=== PATIENT | male | born 1935 | race Caucasian/White ===

== ENCOUNTER 2017-02-14 11:15 | Observation (INO) | payer MEDICARE ==
[~2017-02-14] VITALS: Ht 176.5 cm; Wt 82.0 kg
--- NOTE | 2017-02-14 11:24 | ED.REPORT ---
HPI-Syncope Date of Service Feb 14, 2017 ED Provider: Dr. Aquino Pt is an 82 y/o male w/ a hx of NIDDM, HTN, presenting to the ED due to syncopal episode which occurred about 1 hr prior to arrival. He was sitting at a pew in worship and began to experience bilateral blurred vision which he describes as "cloudy sensation all over" and then lost consciousness. EMS was called and he opted to come to the ED via personal vehicle. He was able to walk into the ED independently and is feeling completely normal at time of interview. He had been sitting for a while but notes that he does experience intermittent orthostatic lightheadedness which he states is normal for him. He does report cold-like symptoms recently which include mild dry cough and nasal congestion. He denies any CP, palpitations, SOB, change in balance, focal numbness/weakness, speech change. Nursing Notes Stated Complaint: FAINTED,POSS LOW BLOOD SUGAR,BLURRY VISION Chief Complaint: Chest Pain Nursing Notes Reviewed: Yes Allergies: Coded Allergies: No Known Allergies (Unverified , 02/14/17) Scheduled Amlodipine (Amlodipine) 10 Mg Tablet 10 MG PO DAILY Aspirin (Aspirin) 81 Mg Tablet 81 MG PO DAILY Atorvastatin Calcium (Atorvastatin Calcium) 10 Mg Tablet 10 MG PO DAILY Carvedilol (Carvedilol) 12.5 Mg Tablet 12.5 MG PO DAILY Carvedilol (Carvedilol) 12.5 Mg Tablet 25 MG PO DAILYWD Chlorthalidone (Chlorthalidone) 25 Mg Tablet 25 MG PO DAILY Glipizide ER (Glipizide ER) 5 Mg Tab.er.24 0.25 MG PO DAILY Isosorbide MN ER (Isosorbide MN ER) 30 Mg Tab.er.24h 30 MG PO DAILY Losartan Potassium (Losartan Potassium) 100 Mg Tablet 100 MG PO DAILY Metformin HCl (Metformin HCl ER) 1,000 Mg [id number] 1,000 MG PO BIDWM General Time Seen by Provider: 11:25 Chief Complaint Other (syncopal episode) Syncope Description: Single episode Hx Obtained From: Patient Arrived By: Walk-in Onset Occurred: 1 - 4 hours ago Symptom Duration: 1 - 15 minutes Progression Since Onset: Resolved Severity: Current: No pain currently Severity: Maximum: No pain Similar Sx Previous: No Past Medical History Past Medical History NIDDM HTN Past Surgical History Achilles tendon repair Smoking History Never Smoker Social History Alcohol Use: "Social" Ambulatory Status Independent Review of Systems Constitutional: Denies: Chills, Fever Eyes: Reports: Blurred bilateral, Denies: Photophobia Ears / Nose / Throat: Reports: Nasal congestion, Denies: Throat swelling Respiratory: Reports: Non-productive cough, Denies: Shortness of breath Cardiovascular: Denies: Chest pain, Dyspnea on exertion, Palpitations GI: Denies: Abdominal pain, Nausea, Vomiting Neurologic: Reports: Change LOC, Syncope, Vision change, Denies: Confusion, Dizziness, Focal weakness, Headache, Numbness, Problem walking, Shaking, Slurred speech, Unable to speak Complete sys rev & neg: except as marked. Physical Exam Initial Vital Signs Vital Signs (First) Date Time Temp Pulse Resp B/P Pulse Ox O2 Delivery O2 Flow Rate FiO2 02/14/17 11:25 36.9 67 15 149/73 99 Room Air Initial VS: Reviewed, Vital signs normal Head / Eyes: Atraumatic, Normocephalic, PERRL ENT: Mucous membranes moist, Conjunctiva normal, No scleral icterus Neck: Supple, Full range of motion Abdomen / GI: Soft, Non-tender, No guarding, No rebound, No distention Upper Extremities: Vascular intact, Neuro intact, No swelling, No tenderness Skin: Warm, Dry, No cyanosis Psychiatric: Mood/affect normal, Behavior normal, Normal thought content General/Constitutional: Awake, Alert, No acute distress, Well appearing, Cooperative, Not toxic appearing Respiratory / Chest: Atraumatic, Breath sounds NL, Breath sounds = bilat, No respiratory distress, No rales, No rhonchi, No wheezing, No retractions, No stridor, No chest tenderness, No chest wall deformity, No crepitus Cardiovascular: Heart rate NL, Regular rhythm, Heart sounds NL, No gallop, No murmurs, No rubs, Cap refill not delayed, Peripheral circulation NL Lower Extremity / Pelvis / MS: Atraumatic, Full range of motion, No deformity, Neurologic intact, Vascular intact, No ligamentous injury Neurologic: Oriented X3, Speech NL, No motor deficits, No sensory deficits, CN II - XII intact, Cerebellar NL, Memory NL Interpretation & Diagnostics Lab Results Interpretation Result Diagram: 02/14/17 1145 02/14/17 1145 Test 02/14/17 11:45 White Blood Count 3.8th/mm3 (3.8-10.1) Red Blood Count 3.56mil/mm3 (4.40-5.80) Hemoglobin 11.7g/dL (13.8-17.2) Hematocrit 34.3% (41.0-50.0) Mean Corpuscular Volume 96.3fL (81-100) Mean Corpuscular Hemoglobin 32.9pg (27.0-35.0) Mean Corpuscular Hemoglobin Concent 34.1% (32.0-37.0) Red Cell Distribution Width 13.0% (12.3-15.4) Platelet Count 217bil/L (150-400) Neutrophils (%) (Auto) 30.1% (40-74) Lymphocytes (%) (Auto) 30.0% (14-46) Monocytes (%) (Auto) 30.8% (4-12) Eosinophils (%) (Auto) 8.5% (0-5) Basophils (%) (Auto) 0.3% (0-3) Sodium Level 132mEq/L (134-144) Potassium Level 4.0mEq/L (3.5-5.2) Chloride Level 93mEq/L (97-108) Carbon Dioxide Level 21mmol/L (18-29) Blood Urea Nitrogen 22mg/dL (8-27) Creatinine 1.41mg/dL (0.76-1.27) Estimat Glomerular Filtration Rate 51mL/min (>59) Glucose Level 141mg/dL (60-99) Calcium Level 9.0mg/dL (8.5-10.1) Magnesium Level 1.9mg/dL (1.6-2.6) Total Bilirubin 0.3mg/dL (0.0-1.2) Aspartate Amino Transf (AST/SGOT) 15U/L (0-50) Alanine Aminotransferase (ALT/SGPT) 14U/L (0-44) Alkaline Phosphatase 52U/L (25-160) Pro-B-Type Natriuretic Peptide 151.2pg/mL (0-486) Total Protein 7.3g/dL (6.4-8.4) Albumin 4.6g/dL (3.4-5.0) Procalcitonin 0.07ng/mL (0.00-0.08) Hold Negrete Top Tube Received (Received) ECG Interpretation Time: 11:34 Interpreted by: ED physician Normal ECG Interpretation: Normal ECG w/ rate of... (64), Normal rate, Normal sinus rhythm, No acute ischemic changes, Normal QRS, Normal axis, Normal intervals, Adequate tracing X-Ray Chest Interpretation Chest Xray Interpretation: IMPRESSION: No acute cardiopulmonary disease. Dictated by: Dario Dumont M.D. on 02/14/2017 at 12:42 Approved by: Dario Dumont M.D. on 02/14/2017 at 12:42 View: Portable, AP & lat Interpretation / Wet Read by: Interpret - Radiologist Re-Eval/Medical Decision Med Decision/Clinical Course Unprovoked syncope pain an 82-year-old diabetic, lab evaluation reveals an indeterminate troponin of unclear etiology however, the overall history of present illness is concerning for cardiogenic cause. We will plan to admit for observation and further workup. Re-Evaluation/Progress : Time of Eval: 13:36 Re-Evaluation/Progress Note: Pt rechecked. Remains asymptomatic. Informed pt of need for admission for further evaluation of unprovoked syncopal episode and elevated troponin. Pt understands and agrees with plan for admission. All questions addressed. Consultation : Referral / Consult Name: Emory Dominguez MD Consulted With: Hospitalist Call Returned at: 14:09 Basketball Coach: Will see patient, Agrees with eval, Agrees with plan, Accepts admit Counseled Regarding: Diagnosis, Lab results, Need for admission Discharge & Departure Impression: Primary Impression: Syncope Syncope type: unspecified Qualified Code: R55 - Syncope and collapse Additional Impression: Elevated troponin Disposition: ADMITTED TO HOSPITAL Discharge Condition All VS Reviewed: Yes Condition: Stable Scribe Attestation Portions of this note were transcribed by Corbin Horner. I, Dr. Aquino personally performed the history, physical exam and medical decision-making; I reviewed and confirmed the accuracy of the information in the transcribed note. Signed by Kevin Cruz, 02/14/17 - 1145 Hernandez Aquino DO Feb 14, 2017 11:24 CORBIN HORNER Feb 14, 2017 11:25
[2017-02-14 11:25] VITALS: BP 149/73; PULSE 67; RESP 15; O2SAT 99
[2017-02-14 11:59] LABS: BASOPHILS % (AUTO) 0.3 % (0-3); EOSINOPHILS % (AUTO) 8.5 % (0-5); MONOCYTES % (AUTO) 30.8 % (4-12); Mean Corpuscular Hemoglobin 32.9 pg (27.0-35.0); Mean Corpuscular Volume 96.3 fL (81-100); NEUTROPHILS % (AUTO) 30.1 % (40-74); Platelet Count 217 bil/L (150-400)
[2017-02-14 12:11] LABS: TROPONIN T 0.026 ug/L (0.0-0.011)
[2017-02-14 12:22] LABS: Magnesium 1.9 mg/dL (1.6-2.6)
--- NOTE | 2017-02-14 12:44 | DRSVH ---
PROCEDURE: X-RAY CHEST, TWO VIEWS ([id number]) INDICATIONS: syncope TECHNIQUE: 2 views of the chest were acquired. COMPARISON: [facility], , CHEST 2 VIEW, 02/11/2016, 10:57. FINDINGS: Surgical changes and devices: None. Lungs and pleura: No pleural effusions or pneumothorax. Mild left basilar atelectasis. Lungs are ot herwise clear. Mediastinum: Mediastinal contours are normal. Heart size is normal. Bones and chest wall: No suspicious bony abnormalities. Soft tissues appear unremarkable. IMPRESSION: No acute cardiopulmonary disease. Dictated by: Dario Dumont M.D. on 02/14/2017 at 12:42 Approved by: Dario Dumont M.D. on 02/14/2017 at 12:42
[2017-02-14] MEDS ORDERED: Ondansetron 2 mg/mL 2 mL Inj IVPUSH PRN ×2 (14:20→14:55)
[2017-02-14] MEDS ORDERED: Alum-Mag Hydrox-Simeth 30 mL Suspension PO PRN ×2 (14:20→14:55)
[2017-02-14 14:46] VITALS: BP 123/74; PULSE 66; RESP 20; O2SAT 96
[2017-02-14] MEDS ORDERED: Polyethylene Glycol (PEG) 17 Gm Powder PO PRN (14:55)
[2017-02-14 14:59] VITALS: PULSE 67
[2017-02-14] MEDS ORDERED: ISOS30TA4 PO (15:45)
[2017-02-14] MEDS ORDERED: AMLO10TA3 PO (15:45)
[2017-02-14] MEDS ORDERED: LOSA100T29 PO (15:45)
[2017-02-14] MEDS ORDERED: GLIP5TAB26 PO (15:45)
[2017-02-14] MEDS ORDERED: HYG25 PO (15:46)
[2017-02-14] MEDS ORDERED: ATOR10TA66 PO (15:46)
[2017-02-14] MEDS ORDERED: ASPI-973 PO (15:47)
[2017-02-14] MEDS ORDERED: CARV12.52 PO ×2 (15:48)
[2017-02-14] MEDS ORDERED: METF-778 PO (15:48)
--- NOTE | 2017-02-14 18:06 | NUR ---
Admit: Patient arrived to [facility] @ approx 1500. Alert & oriented. Bed rails up x 2, bed in low and locked position. VSS. Telemetry #43 SR 80 per telephone supervisor. Oriented to room and call light system. Denies pain, shortness of breath, dizziness, lightheadedness. Family at bedside. BG 215. notified, SS insulin coverage ordered.
--- NOTE | 2017-02-14 18:23 | NUR ---
RENE explained and signed. Copy provided to pt.
[2017-02-14] MEDS: 0.9% NaCl + KCl 20 mEq/L 1,000 ML IV SCH (18:40)
[2017-02-14 19:49] VITALS: BP 119/68; PULSE 80; RESP 20; O2SAT 98
[2017-02-14 20:00] VITALS: PULSE 80
--- NOTE | 2017-02-14 20:03 | PCM.HPMED ---
Subjective Date of Service Feb 14, 2017 Primary Provider: Admitting Physician: Emory Dominguez MD Primary Care Physician: Amelie Escobedo Attending Physician: Emory Dominguez MD Admit Status: From the Emergency Department, Admit to Kevin Team Chief Complaint: I past out in [facility] History of Present Illness: Patient is an 82-year-old white male who appears much younger than his stated age. He has a history of nei-nbawwsj-jrdpxrkth diabetes mellitus and hypertension and was attending [facility] this morning. The patient was sitting in the pew next to his daughter when he began to experience sensation and sensation that he describes as "everything went cloudy". The patient collapsed from the pew where he was sitting to the floor. Family estimates that he was out for only 10-15 seconds. There were a couple of nurses present at the mass and they began feeding him sugar. Paramedics were called and when they arrived they checked the patient's blood sugar and it was 143. EMS services offered to take the patient to [facility] emergency room however the patient opted to come to the [facility] emergency room via personal vehicle. He was able walk into the emergency room department independently and was feeling completely normal at the time of the interview by Dr. Piyush Fermin. He did state that he experienced some orthostatic lightheadedness which he stated was normal for him. He did report cold-like symptoms recently which included mild dry cough and nasal congestion. He denied any chest pain,", shortness of breath , change in balance, focal numbness or weakness or speech change. Patient due to the syncopal episode was brought in under observation to the hospital service. Review of Systems: General: The patient is in no apparent distress. He has not lost weight recently and he has no additional complaints. HEENT: Patient has no headache, patient has no diplopia, patient has no changes in vision. Patient does have some early cataracts but they are not to the point where they need to be operated on. Patient has no problems with his ears , nose or throat. Patient has no known dental problems. Patient has no pharyngitis or history of thrush. Neck: Patient has no stiffness in the neck. Patient has no lymphadenopathy. Patient has no other problems with his neck. Pulmonary: Patient has no shortness of breath, no cough, no expectoration of sputum. Patient has no pleurisy. Patient has no chest pain. Patient has no history of asthma or COPD. Cardiovascular: Patient has no chest pain. Patient has no history of heart murmur. Patient has no palpitations. Patient has no history of myocardial infarction. Patient has no history of coronary artery disease. Gastrointestinal: Patient has no history of hepatitis A, B or C. Patient has no history of peptic ulcer disease. Patient has no history of gastroesophageal reflux disease. Patient has no history of nausea, vomiting, or diarrhea. Patient has no history of hematemesis, hematochezia, or melena. Patient has no history of colitis. Renal: Patient has no history of kidney disease. No history of kidney stones. Genitourinary: Patient has no history of dysuria, frequency, or incontinence. Patient has no previous history of genitourinary problems. Musculoskeletal: Patient has no history of muscular skeletal problems. He does complain of some achiness which he associates with arthritis. However, this is very minimal. Patient does get edema both lower extremities which is symmetrical. Neurologic: Patient has no history of stroke, no history of seizure, no history of TIA. Psychiatric: Patient has no history of psychiatric problems. The remainder of the entire review of systems was reviewed with patient and is as mentioned above otherwise negative. Allergies Coded Allergies: No Known Allergies (Unverified , 02/14/17) Home Medications Amlodipine (Amlodipine) 10 Mg Tablet 10 MG PO DAILY Aspirin (Aspirin) 81 Mg Tablet 81 MG PO DAILY Atorvastatin Calcium (Atorvastatin Calcium) 10 Mg Tablet 10 MG PO DAILY Carvedilol (Carvedilol) 12.5 Mg Tablet 12.5 MG PO DAILY Carvedilol (Carvedilol) 12.5 Mg Tablet 25 MG PO DAILYWD Chlorthalidone (Chlorthalidone) 25 Mg Tablet 25 MG PO DAILY Glipizide ER (Glipizide ER) 5 Mg Tab.er.24 0.25 MG PO DAILY Isosorbide MN ER (Isosorbide MN ER) 30 Mg Tab.er.24h 30 MG PO DAILY Losartan Potassium (Losartan Potassium) 100 Mg Tablet 100 MG PO DAILY Metformin HCl (Metformin HCl ER) 1,000 Mg [id number] 1,000 MG PO BIDWM PMH Mew-ggwitms-gbxyrabgz diabetes mellitus for approximately 20 years. Hypertension for possibly 20 years. Surgical History Tonsillectomy at a very young age Achilles tendon repair after he snapped his right Achilles tendon during a family volleyball game. He denies any other surgeries. Social History Hx Alcohol Use: Yes Alcoholic Drinks Per Day: 1 Wine/Day Hx Substance Use: No Smoking Status: Former Smoker (patient smoked for 3 or 4 years during the service and possibly a year or so after getting out. Patient then quit.) Living Arrangement: with Family Additional Information Patient was born in [place] and then was raised [place] ended up going to high school in [employer]. Patient then went to one year at [employer]. Patient ended up marrying a girl he went to high school with and he has been now for 57 years. The patient smoked in the [employer] for 3 years and then maybe a year after that and then quit he was stationed in [place] and never saw combat. 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 Therefore he began chewing tobacco and continue to chew tobacco for 35 years. He never drank very much and axial have an occasional wine. 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 [place]. Exam Vital Signs Vital Sign - Last Date Time Temp Pulse Resp B/P Pulse Ox O2 Delivery O2 Flow Rate FiO2 02/14/17 14:59 67 02/14/17 14:46 37.0 20 123/74 96 Room Air Exam General: Patient is in no apparent distress and appears quite comfortable lying supine in bed. He states he has got up to go the bathroom several times and has not had any lightheadedness or dizzy spells. Patient appears much younger than his stated age of 82. HEENT: Head is atraumatic and normocephalic. Eyes: Pupils are equally round and reactive to light and accommodation. Extraocular muscles are intact. Sclera are white, anicteric. Subconjunctival mucosa is pink. Ears and nose are unremarkable. Oropharynx: There is no mucosal lesions, there is no thrush, there is no pharyngitis. Neck: Is supple, there are no nodes, or masses or tenderness. Chest: Is clear to auscultation and percussion. There are no rales, rhonchi, wheezes or rubs. Heart: Rate, rhythm is regular although heart tones are quite distant. There is a grade 1 to 2/6 systolic ejection murmur heard best left sternal border. There is no rub or gallop. Abdomen: Good bowel sounds are present. Abdomen is soft, nontender, no organomegaly or masses were appreciated. There is some tympany to percussion. But there is no rebound tenderness or guarding. Extremities: Are symmetrical and well perfused. There is no edema, there is no cellulitis, no rash. Neurologic: There are no focal neurological deficits. Cranial nerves II through XII are intact. There are no sensory or motor deficits. Psychiatric: Patients mood is calm and shows no sign of agitation. Genital: Deferred Rectal: Deferred Lab and Diagnostics Result Diagram: 02/14/17 1145 02/14/17 1145 X-Rays, CTs and MRIs PROCEDURE: X-RAY CHEST, TWO VIEWS ([id number]) INDICATIONS: syncope TECHNIQUE: 2 views of the chest were acquired. COMPARISON: [facility], , CHEST 2 VIEW, 02/11/2016, 10:57. FINDINGS: Surgical changes and devices: None. Lungs and pleura: No pleural effusions or pneumothorax. Mild left basilar atelectasis. Lungs are otherwise clear. Mediastinum: Mediastinal contours are normal. Heart size is normal. Bones and chest wall: No suspicious bony abnormalities. Soft tissues appear unremarkable. IMPRESSION: No acute cardiopulmonary disease. Dictated by: Dario Dumont M.D. on 02/14/2017 at 12:42 Approved by: Dario Dumont M.D. on 02/14/2017 at 12:42 Assessment & Plan Patient is an 82-year-old white male who appears much younger than his stated age. He has a history of vyl-hhftsxk-hfzaitkfq diabetes mellitus and hypertension and was attending [facility] this morning. The patient was sitting in the pew next to his daughter when he began to experience sensation and sensation that he describes as "everything went cloudy". The patient collapsed from the pew where he was sitting to the floor. Family estimates that he was out for only 10-15 seconds. There were a couple of nurses present at the mass and they began feeding him sugar. Paramedics were called and when they arrived they checked the patient's blood sugar and it was 143. EMS services offered to take the patient to [facility] emergency room however the patient opted to come to the [facility] emergency room via personal vehicle. He was able walk into the emergency room department independently and was feeling completely normal at the time of the interview by Dr. Piyush Fermin. He did state that he experienced some orthostatic lightheadedness which he stated was normal for him. He did report cold-like symptoms recently which included mild dry cough and nasal congestion. He denied any chest pain,", shortness of breath , change in balance, focal numbness or weakness or speech change. Patient due to the syncopal episode was brought in under observation to the hospital service. # Syncope with collapse - Patient was completely unconscious for 10-15 seconds and fell off the [facility] pew that he was sitting out on to the floor. - We will monitor his blood sugars before meals and at bedtime and provide sliding scale insulin coverage - We will check an MRI stroke protocol of his brain and neck - We will check carotid Dopplers - We will check echocardiogram - We will continue telemetry monitoring # Pif-ossjfcb-menfqveer diabetes mellitus - As patient's creatine clearance is low due to his age will decrease metformin to 500 mg by mouth twice a day. - We will continue glipizide 2.5 mg by mouth daily - We will provide Accu-Cheks every before meals and at bedtime and with low correctional scale sliding scale insulin coverage # Hypertension - For now will continue blood pressure meds as at home which include carvedilol , amlodipine, losartan, chlorthalidone - We will monitor blood pressure closely I discussed case with patient's 2 sons at bedside and patient at length and answered all of their questions. Disposition: Patient will likely be here another 24 hours to evaluate the above problems. Pain Evaluation: Adequate Pain Control GI Prophylaxis: Not indicated VTE Prophylaxis: Sub-Q Enoxaparin Resuscitation Status: CPR: Attempt Resuscitation AlbertoEmory MD Feb 14, 2017 20:03
[2017-02-14] MEDS: Insulin Human REGular 300 Unit/3 mL Inj SUBQ SCH (20:48)
[2017-02-15 00:29] VITALS: BP 157/82; PULSE 80; RESP 20; O2SAT 98
[2017-02-15 02:39] VITALS: BP_SYST 150; BP_SYST 154; BP_SYST 160; BP_DIAS 76; BP_DIAS 82; BP_DIAS 84; PULSE 84; PULSE 85; PULSE 88
[2017-02-15 05:06] VITALS: BP 158/81; PULSE 78; RESP 20; O2SAT 98
--- NOTE | 2017-02-15 05:23 | NUR ---
fagoter No complaints of dizziness, pain or SOB. He is ambulating to the BR frequently and steady on his feet. Ortho BPs are negative, family spent the night.
[2017-02-15] MEDS: 0.9% NaCl + KCl 20 mEq/L 1,000 ML IV SCH (05:35)
[2017-02-15 06:50] LABS: BASOPHILS % (AUTO) 0.3 % (0-3); EOSINOPHILS % (AUTO) 6.8 % (0-5); MONOCYTES % (AUTO) 30.7 % (4-12); Mean Corpuscular Hemoglobin 33.3 pg (27.0-35.0); Mean Corpuscular Volume 96.6 fL (81-100); NEUTROPHILS % (AUTO) 29.8 % (40-74); Platelet Count 223 bil/L (150-400)
[2017-02-15 07:07] LABS: TROPONIN T 0.014 ug/L (0.0-0.011)
[2017-02-15] MEDS: Insulin Human REGular 300 Unit/3 mL Inj SUBQ SCH ×3 (07:15→16:45)
[2017-02-15 07:19] LABS: Magnesium 1.7 mg/dL (1.6-2.6); Phosphorus 3.2 mg/dL (2.5-4.9)
--- NOTE | 2017-02-15 08:00 | NUR ---
Off Unit: Patient transported via wheelchair to MRI accompanied by transporter @ approx 0800. Telemetry removed, front desk monitor notified. Alert & oriented at time of transport.
[2017-02-15] MEDS ORDERED: glipiZIDE 2.5 mg ER24 Tablet PO SCH (08:30)
[2017-02-15] MEDS ORDERED: Isosorbide Mononitrate 30 mg ER24 Tablet PO SCH (08:30)
--- NOTE | 2017-02-15 09:45 | DRSVH ---
PROCEDURE: MRI STROKE PROTOCOL ([id number]) Pre- and post-contrast brain MRI, non-contrast brain MR angiogram, pre- and postcontrast neck MR garfield ogram INDICATIONS: Syncope/Possible CVA TECHNIQUE: Brain: Noncontrast axial T1 spin echo, axial T2 fast spin echo, sagittal and axial FLAIR, coronal T2 fast spin echo, axial gradient echo, axial diffusion and ADC through the brain. After the administr ation of contrast, axial 3D VIBE of the cranial vasculature and brain. Brain MRA: Non-contrast 3-D time of flight MR angiogram, with multiple enjhdfx-pccstadjc-gximxtnuva (MIP) reformats performed. Neck MRA: Axial and sagittal TruFISP through the neck. Coronal dynamic MR angiogram during administ ration of contrast in the arterial and venous phases, with 3-dimenstional kbwnizk-aczavsugw-lnizxpqrz n (MIP) reformats constructed from subtraction images. COMPARISON: None. FINDINGS: Image quality: Excellent. BRAIN: CSF spaces: Ventricles are normal in size and shape. Basal cisterns are patent. No extra-axial flu id collections. 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 No intracranial bleeds or ma ss effects. There is moderate cerebral volume loss. Mild periventricular white matter chronic small vessel ischemic changes are present. Diffusion weighted images show no acute ischemic insults. Brain stem appears normal. Normal intravascular flow voids are present. No abnormal intracranial enhancem ent. Skull and face: Calvarial marrow signal is normal. Orbits appear normal. Sinuses: Bilateral maxillary and ethmoid sinus mucosal thickening. There is mucous retention cyst or polyp in the right maxillary sinus. Mucous retention material is noted in the left frontal sinus. The mastoids are clear. BRAIN MR ANGIOGRAM: Anterior circulation: Intracranial internal carotid arteries are normal in size and enhancement. Th e flow within the paired anterior cerebral arteries is normal and symmetric. The flow within the mid dle cerebral arteries is normal and symmetric. The anterior communicating artery is seen. No stenos es, occlusions, or aneurysms. Posterior circulation: The visualized portions of the vertebral arteries demonstrate normal caliber, and join to form a normal appearing basilar artery. The flow within the posterior cerebral arteries is normal and symmetric. No stenoses, occlusions, or aneurysms. NECK MR ANGIOGRAM: Carotids: Great vessels demonstrate a conventional anatomy as they arise from the aortic arch. The origins of the common carotid arteries appear patent. The calibers and courses of both common caroti d arteries are normal. The bifurcation regions appear normal bilaterally. The internal carotid rayne lamberto demonstrate normal course and caliber. Posterior circulation: The origins of the vertebral arteries appear patent. There is mild narrowing (30-40%) in the proximal right vertebral artery. More superior portions of both vertebral arteries d emonstrate normal course and caliber, and join to form a normal appearing basilar artery. Miscellaneous: Subclavian arteries appear patent. Pre-contrast images through the neck show no soft tissue abnormalities. IMPRESSION: BRAIN MRI: 1. No acute intracranial abnormalities. 2. 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 3. Mild to moderate cerebral volume loss and chronic microvascular ischemic changes. 4. 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 5. Paranasal sinus disease as described. BRAIN MR ANGIOGRAM: No high-grade stenosis or occlusion in anterior or posterior circulations. NECK MR ANGIOGRAM: 1. Patent carotid arteries bilaterally without hemodynamically significant stenosis. 2. Mild narrowing (30-40%) of the proximal right vertebral artery. The estimate of stenosis included in the report of the imaging study was calculated using the NASCET method Dictated by: Dario Dumont M.D. on 02/15/2017 at 9:37 Transcribed by: BRANDO on 02/15/2017 at 9:44 Approved by: Dario Dumont M.D. on 02/15/2017 at 11:29
[2017-02-15 10:13] VITALS: PULSE 63
[2017-02-15 10:47] VITALS: BP 102/61; PULSE 64; RESP 22; O2SAT 97
--- NOTE | 2017-02-15 11:06 | DRSVH ---
PROCEDURE: US BILATERAL DUPLEX DOPPLER IMAGING OF THE CAROTIDS ([id number]) INDICATIONS: Syncope TECHNIQUE: Color and pulse Doppler interrogation was performed of both carotid systems, with image documentation and velocity measurements. COMPARISON: None. FINDINGS: All stenosis calculations are based on NASCET criteria. Right side: Brachial blood pressure: 158/81 mm Hg. Common Carotid Artery(Distal) PSV: 89.70 cm/s Internal Carotid Artery PSV- Proximal: 128 cm/s Mid-lon.30 cm/s Distal: 74.70 cm/s EDV - Proximal: 30.80 cm/s Mid-lon.50 cm/s Distal: 27.40 cm/s External Carotid Artery(Proximal) PSV: 127.30 cm/s ICA/CCA PSV ratio: 1.4 Bell scale imaging description: Calcified plaques at the bifurcation Percent internal carotid artery stenosis: 50-69%. Vertebral artery: Flow direction is antegrade. Left side: Brachial blood pressure: n.a. Common Carotid Artery(Distal) PSV: 118.60 cm/s Internal Carotid Artery PSV - Proximal: 176.60 cm/s Mid-lon.90 cm/s Distal: 59.60 cm/s EDV - Proximal: 25.60 cm/s Mid-lon cm/s Distal: 22.60 cm/s External Carotid Artery(Proximal) PSV: 270.50 cm/s ICA/CCA PSV ratio: 1.5 Bell scale imaging description: Calcified plaques at the bifurcation Percent internal carotid artery stenosis: 50-69%. Vertebral artery: Flow direction is antegrade. IMPRESSION: 1. 50-69% internal carotid artery stenosis bilaterally. 2. Antegrade vertebral artery flow bilaterally. Dictated by: Dario Dumont M.D. on 02/15/2017 at 11:02 Approved by: Dario Dumont M.D. on 02/15/2017 at 11:04
--- NOTE | 2017-02-15 11:52 | NUR ---
Social Work-initial assessment: Data:See initial assessment. Pt is an 82 y/o male who was admitted on 02/14/17 for Syncope Elevated Trop per H&P. Pt's insurance is [employer] and PCP is Amelie Escobedo MD. EMR Reviewed. Pt's readmission score is 1-low risk. SW met with pt, alex Avendaño to discuss discharge planning, SW role explained. Pt is alert and oriented x3. Pt resides at home with his in a single level home with no steps to enter. Pt remains independent with basic ADLs. Pt drives POV. Pt has no HH or SNF history. Pt reports that he has completed DPOA/advanced directive. SW requested that this be brought to the hospital to be put on file. Pt has [employer] benefits and does not have VA benefits. Per nursing notes pt has been up independent in the room. Pt's family to provide transport home at discharge. SW provided phone number and plan on white board in room. No anticipated discharge needs. SW will continue to follow. Assessment:Pt who resides at home alone. Plan:Pt to likely discharge home with no needs. SW will continue to follow. ARMANDO Nunes Addendum: 02/15/17 at 1241 by MINESH CHEATHAM SS Amended: Links added.
[2017-02-15 14:36] VITALS: BP 124/66; PULSE 73; RESP 22; O2SAT 97
--- NOTE | 2017-02-15 15:07 | NUR ---
Activity: Patient ambulated independently the full length of hallway. Denied pain, SOB, dizzy or lightheadedness. SR 60-80s, no ectopy per apparatus engineering technologist.
--- NOTE | 2017-02-15 15:32 | DRSVH ---
[facility] [address] [place] [address] Echocardiogram Report Name: JAIME TOBIAS JStudy Date: 02/15/2017 Height: 69 in Hospital Exam Location: [facility] Weight: 18 1 lb Gender: Male BSA: 2.0 m2 : 1935 Age: 82 yrs BP: 158/81 mmHg Reason For Study: Syncope Ordering Physician: HOSPITALIST [facility] Performed By: Carmela Becerra Referring Physician: SEFERINO Escobedo Interpretation Summary Left ventricular wall thickness is at the upper limits of normal. Left ventricular systolic function is normal without focal wall motion abnormalities. The ejection fraction is estimated to be 60-65%. Assessment of diastolic parameters indicates a relaxation abnormality of the left ventricle, consistent with normal filling pressures. The right ventricle is normal in size and function. The right ventricular systolic pressure is estimated at 26 mmHg assuming a right atrial pressure of 3 mm Hg. Both atria are normal in size. No obvious right to left shunt with bubble study. There is no Doppler evidence for an interatrial shunt. There is no significant valvular heart disease. The aortic root is normal size. Mild atherosclerotic plaque(s) in the aortic arch. Procedure: A two-dimensional transthoracic echocardiogram with color flow and Doppler was performed. The study quality was technically adequate. There is no prior echocardiogram noted for this patient. A saline contrast injection was performed to assess for cardiac shunting. The patient was in normal sinus rhythm during the exam. Left Ventricle: The left ventricle is normal in size. Left ventricular wall thickness is at the upper limits of normal. A false chord is noted (normal variant). Left ventricular systolic function is normal without focal wall motion abnormalities. The ejection fraction is estimated to be 60-65%. Assessment of diastolic parameters indicates a relaxation abnormality of the left ventricle, consistent with normal filling pressures. Right Ventricle: The right ventricle is normal in size and function. Atria: Both atria are normal in size. There is no Doppler evidence for an interatrial shunt. No obvious right to left shunt with bubble study. Mitral Valve: The mitral valve is normal in structure and function. There is trace mitral regurgitation. Aortic Valve: The aortic valve is normal in structure and function. There is trace aortic regurgitation. Tricuspid Valve: The tricuspid valve is not well visualized, but is grossly normal. There is a trace or physiologic amount of tricuspid regurgitation. The right ventricular systolic pressure is estimated at 26 mmHg assuming a right atrial pressure of 3 mm Hg. Pulmonic Valve: The pulmonic valve is not well visualized. There is no pulmonic valvular regurgitation. There is no significant valvular heart disease. Great Vessels: The aortic root is normal size. The ascending aorta is normal in size. The aortic arch is normal in size. Mild atherosclerotic plaque(s) in the aortic arch. The IVC is of normal diameter and collapses greater than 50% with a sniff. This suggests a low right atrial pressure of 3 mm Hg. Pericardium/ Pleura There is no pericardial effusion. MMode/2D Measurements & Calculations LVIDd: 4.4 cm LA dimension: 3.4 cm RA long axis LVOT diam: 2.2 cm LVIDs: 2.9 cm AoV Opening FS: 35.0 % LA A2 area: 17.5 cm RA area EPSS: 0.45 cm LA A4 area: 17.8 cm Ao root diam IVSd: 1.1 cm LA length (vol) : 12.3 cm LVPWd: 0.98 cm RA vol asc Aorta Diam LA vol: 50.5 ml : 24.8 ml LA vol index RA Ao Arch Diam (Prox : 12.5 mm2 Trans): 3.0 cm IVC diam: 1.6 cm LV patten. diameter/BSA LV sys. diameter/BSA RVD1 (basal) (cm/m^2): 2.2 (cm/m^2): 1.5 Doppler Measurements & Calculations Ao V2 max MV E max yon MV E/A: 0.82 TR max yon : 134.0 cm/sec : 74.2 cm/sec Med Peak E' Yon : 241.6 cm/sec Ao max PG MV A max yon TR max PG : 7.2 mmHg : 90.5 cm/sec E/E' med: 9.7 : 23.3 mmHg Ao mean PG MV P1/2t: 91.1 msec Lat Peak E' Yon PA V2 max : 72.7 cm/sec LVOT Max Yon E/E' lat: 10.0 PA mean PG : 119.9 cm/sec E/e' average: 9.8 Pulm A Revs Dur PA Accel Time JANUARY(I,D): 3.1 cm : 0.15 sec sev ratio MV A dur: 0.14 sec MV dec time MV P1/2t max yon Ao V2 mean LV V1 max PG : 0.31 sec : 96.5 cm/sec MVA(P1/2t): 2.4 cm2 Ao V2 VTI: 25.7 cm LV V1 VTI JANUARY(V,D): 3.4 cm2 : 20.8 cm PA V2 mean JANUARY indexed to BSA Pulm A Revs Dur - MV : 52.6 cm/sec (cm^2/m^2): 1.6 A Dur: -0.04 msec Reading Physician:RADHA
--- NOTE | 2017-02-15 17:12 | PCM.DIMED ---
Discharge Instructions Date of Service Feb 15, 2017 Dates of Hospitalization Feb 14, 2017 at 14:03 Discharge Diagnosis Discharge Diagnosis Syncope Diet Heart Healthy, Diabetic Activity No restrictions (The patient may return to usual activities gradually as tolerated.) Call your provider Fever or Chills, Shortness of breath, Bleeding, Chest pain, Vomitting, Excessive diarrhea, Weakness (unilateral), Other Patient Instructions Follow-up plan Follow-up with the [facility] diabetic education program Follow-up Provider: Amelie Escobedo PAC Follow-up with PCP in: 1 week (Patient likely needs a Holter monitor and possibly cardiology referral.) Emory Dominguez MD Feb 15, 2017 17:12
[2017-02-15] MEDS ORDERED: METF500T PO (17:17)
[2017-02-15] MEDS ORDERED: GLIP2.5T2 PO (17:17)
--- NOTE | 2017-02-15 18:17 | NUR ---
Diabetic Education Requested from family: Patient is not a new diabetic, however patient's family had many questions and would like information on our outpatient diabetic program. Patient sleeping at this time, diabetic education provided to multiple family members at the bedside. They were wondering if his insurance would cover the outpatient diabetic program. Provided informational pamphlet on our Outpatient Diabetes Education program and instructed family to call them for more information. Also provided family with Diabetic Education packet and reviewed material with them. Stated understanding of teaching. Message left with Outpatient Diabetic Education regarding plan for family to contact them soon.
--- NOTE | 2017-02-15 18:31 | NUR ---
Discharge: Patient discharged to home @ approx 1830. IV d/c'd intact, telemetry removed, geothermal field technician notified. Personal belongings sent home with patient. Reviewed home medication list, changes in dosages, d/c instructions and follow up appointment. Verbalized understanding. Escorted to main entrance via wheelchair accompanied by FOIL WRAPPER and family.
--- NOTE | 2017-02-16 13:34 | PCM.DC.MED ---
Discharge Summary Date of Service Feb 15, 2017 Dates of Hospitalization Date of Hospital Admission Feb 14, 2017 at 14:03 Date of Discharge: Feb 15, 2017 Providers: Admitting Physician: Emory Dominguez MD Primary Care Physician: Amelie Escobedo Attending Physician: Emory Dominguez MD Diagnosis at Time of Discharge Diagnosis at Time of Discharge Syncope Procedures XRay, CTs & MRIs PROCEDURE: X-RAY CHEST, TWO VIEWS ([id number]) INDICATIONS: syncope TECHNIQUE: 2 views of the chest were acquired. COMPARISON: [facility], CHEST 2 VIEW, 02/11/2016, 10:57. FINDINGS: Surgical changes and devices: None. Lungs and pleura: No pleural effusions or pneumothorax. Mild left basilar atelectasis. Lungs are otherwise clear. Mediastinum: Mediastinal contours are normal. Heart size is normal. Bones and chest wall: No suspicious bony abnormalities. Soft tissues appear unremarkable. IMPRESSION: No acute cardiopulmonary disease. Dictated by: Dario Dumont M.D. on 02/14/2017 at 12:42 Approved by: Dario Dumont M.D. on 02/14/2017 at 12:42 Brief History Patient is an 82-year-old white male who appears much younger than his stated age. He has a history of dkc-fyocwvm-jkkdqmhya diabetes mellitus and hypertension and was attending cheondoism this morning. The patient was sitting in the pew next to his daughter when he began to experience sensation and sensation that he describes as "everything went cloudy". The patient collapsed from the pew where he was sitting to the floor. Family estimates that he was out for only 10-15 seconds. There were a couple of nurses present at the mass and they began feeding him sugar. Paramedics were called and when they arrived they checked the patient's blood sugar and it was 143. EMS services offered to take the patient to [facility] emergency room however the patient opted to come to the [facility] emergency room via personal vehicle. He was able walk into the emergency room department independently and was feeling completely normal at the time of the interview by Dr. Piyush Fermin. He did state that he experienced some orthostatic lightheadedness which he stated was normal for him. He did report cold-like symptoms recently which included mild dry cough and nasal congestion. He denied any chest pain,", shortness of breath , change in balance, focal numbness or weakness or speech change. Patient due to the syncopal episode was brought in under observation to the hospital service. Hospital Course Patient is an 82-year-old white male who appears much younger than his stated age. He has a history of azd-ophhcws-cxjokeluu diabetes mellitus and hypertension and was attending cheondoism this morning. The patient was sitting in the pew next to his daughter when he began to experience sensation and sensation that he describes as "everything went cloudy". The patient collapsed from the pew where he was sitting to the floor. Family estimates that he was out for only 10-15 seconds. There were a couple of nurses present at the mass and they began feeding him sugar. Paramedics were called and when they arrived they checked the patient's blood sugar and it was 143. EMS services offered to take the patient to [facility] emergency room however the patient opted to come to the [facility] emergency room via personal vehicle. He was able walk into the emergency room department independently and was feeling completely normal at the time of the interview by Dr. Piyush Fermin. He did state that he experienced some orthostatic lightheadedness which he stated was normal for him. He did report cold-like symptoms recently which included mild dry cough and nasal congestion. He denied any chest pain,", shortness of breath , change in balance, focal numbness or weakness or speech change. Patient due to the syncopal episode was brought in under observation to the hospital service. # Syncope with collapse - Patient was completely unconscious for 10-15 seconds and fell off the cheondoism pew that he was sitting out on to the floor. - We will monitor his blood sugars before meals and at bedtime and provide sliding scale insulin coverage - Patient had an MRI stroke protocol of his brain and neck which showed no acute changes. Patient does have evidence of an old cerebrovascular accident. - The patient had carotid Dopplers which showed no significant stenosis - The patient had an echocardiogram which revealed no cause for syncopal episode - Patient had telemetry monitoring which showed no arrhythmia would cause a syncopal episode - The patient remained completely asymptomatic throughout his hospitalization # Vta-lfmkghw-itxzxjbzi diabetes mellitus - As patient's creatine clearance is low due to his age will decrease metformin to 500 mg by mouth twice a day. - We will continue glipizide 2.5 mg by mouth daily - We will provide Accu-Cheks every before meals and at bedtime and with low correctional scale sliding scale insulin coverage # Hypertension - For now will continue blood pressure meds at home which include carvedilol, amlodipine, losartan, chlorthalidone - We will monitor blood pressure closely I discussed case with patient's and daughter and son at bedside. Disposition: Patient will be discharged home today and patient is to follow-up with his primary care provider. I have recommended a cardiology consultation as an outpatient for further workup and further follow-up. Patient may require Holter monitoring Exam Vital Signs (Last) Date Time Temp Pulse Resp B/P Pulse Ox O2 Delivery O2 Flow Rate FiO2 02/15/17 14:36 36.6 73 22 124/66 97 Room Air Exam General: Patient is in no apparent distress and appears quite comfortable lying supine in bed. He states he has got up to go the bathroom several times and has not had any lightheadedness or dizzy spells. Patient appears much younger than his stated age of 82. HEENT: Head is atraumatic and normocephalic. Eyes: Pupils are equally round and reactive to light and accommodation. Extraocular muscles are intact. Sclera are white, anicteric. Subconjunctival mucosa is pink. Ears and nose are unremarkable. Oropharynx: There is no mucosal lesions, there is no thrush, there is no pharyngitis. Neck: Is supple, there are no nodes, or masses or tenderness. Chest: Is clear to auscultation and percussion. There are no rales, rhonchi, wheezes or rubs. Heart: Rate, rhythm is regular although heart tones are quite distant. There is a grade 1 to 2/6 systolic ejection murmur heard best left sternal border. There is no rub or gallop. Abdomen: Good bowel sounds are present. Abdomen is soft, nontender, no organomegaly or masses were appreciated. There is some tympany to percussion. But there is no rebound tenderness or guarding. Extremities: Are symmetrical and well perfused. There is no edema, there is no cellulitis, no rash. Neurologic: There are no focal neurological deficits. Cranial nerves II through XII are intact. There are no sensory or motor deficits. Psychiatric: Patients mood is calm and shows no sign of agitation. Genital: Deferred Rectal: Deferred Test 02/14/17 11:45 3/20/17 05:55 Hemoglobin A1c 7.1% (4.8-5.6) Pro-B-Type Natriuretic Peptide 151.2pg/mL (0-486) Procalcitonin 0.07ng/mL (0.00-0.08) Hold Negrete Top Tube Received (Received) White Blood Count 3.7th/mm3 (3.8-10.1) Red Blood Count 3.51mil/mm3 (4.40-5.80) Hemoglobin 11.7g/dL (13.8-17.2) Hematocrit 33.9% (41.0-50.0) Mean Corpuscular Volume 96.6fL (81-100) Mean Corpuscular Hemoglobin 33.3pg (27.0-35.0) Mean Corpuscular Hemoglobin Concent 34.5% (32.0-37.0) Red Cell Distribution Width 12.8% (12.3-15.4) Platelet Count 223bil/L (150-400) Neutrophils (%) (Auto) 29.8% (40-74) Lymphocytes (%) (Auto) 32.1% (14-46) Monocytes (%) (Auto) 30.7% (4-12) Eosinophils (%) (Auto) 6.8% (0-5) Basophils (%) (Auto) 0.3% (0-3) Sodium Level 134mEq/L (134-144) Potassium Level 3.9mEq/L (3.5-5.2) Chloride Level 96mEq/L (97-108) Carbon Dioxide Level 23mmol/L (18-29) Blood Urea Nitrogen 20mg/dL (8-27) Creatinine 1.10mg/dL (0.76-1.27) Estimat Glomerular Filtration Rate 68mL/min (>59) Glucose Level 151mg/dL (60-99) Calcium Level 8.7mg/dL (8.5-10.1) Phosphorus Level 3.2mg/dL (2.5-4.9) Magnesium Level 1.7mg/dL (1.6-2.6) Total Bilirubin 0.3mg/dL (0.0-1.2) Aspartate Amino Transf (AST/SGOT) 11U/L (0-50) Alanine Aminotransferase (ALT/SGPT) 10U/L (0-44) Alkaline Phosphatase 50U/L (25-160) Troponin T 0.014ug/L (0.0-0.011) Total Protein 6.5g/dL (6.4-8.4) Albumin 4.4g/dL (3.4-5.0) Triglycerides Level 98mg/dL (0-149) Cholesterol Level 120mg/dL (100-199) LDL Cholesterol, Calculated 58.400mg/dL (0-99) VLDL Cholesterol 19.600mg/dL HDL Cholesterol 42mg/dL (>39) Cholesterol/HDL Ratio 2.86 (0.0-4.4) Discharge Medications Discharge Medications Amlodipine (Amlodipine) 10 Mg Tablet 10 MG PO DAILY (Reported) Aspirin (Aspirin) 81 Mg Tablet 81 MG PO DAILY (Reported) Atorvastatin Calcium (Atorvastatin Calcium) 10 Mg Tablet 10 MG PO DAILY ( Reported) Carvedilol (Carvedilol) 12.5 Mg Tablet 12.5 MG PO DAILY (Reported) Carvedilol (Carvedilol) 12.5 Mg Tablet 25 MG PO DAILYWD (Reported) Chlorthalidone (Chlorthalidone) 25 Mg Tablet 25 MG PO DAILY (Reported) Glipizide ER (Glipizide ER) 2.5 Mg Tab.er.24 2.5 MG PO DAILY Prescribed by: ELVIE DOMINGUEZ MD Isosorbide MN ER (Isosorbide MN ER) 30 Mg Tab.er.24h 30 MG PO DAILY (Reported) Losartan Potassium (Losartan Potassium) 100 Mg Tablet 100 MG PO DAILY (Reported ) Metformin (Glucophage) 500 Mg Tablet 500 MG PO BIDWM Prescribed by: ELVIE DOMINGUEZ MD Followup Plan Disposition: Patient is being discharged home with his family today. Follow-up plan Follow-up with the [facility] diabetic education program Discharge Diet: Heart Healthy, Diabetic Discharge Activity: No restrictions (The patient may return to usual activities gradually as tolerated.) Follow-up Provider: Amelie Escobedo Follow-up with PCP in: 1 week (Patient likely needs a Holter monitor and possibly cardiology referral.) Time spent Time spent on discharging this patient was greater than 35 minutes, over half of which was involved in counseling and coordination of care. Emory Dominguez MD Feb 16, 2017 13:34
== END 2017-02-15 18:30 | disposition home or self-care (01) ==
LOC: SED 11:15 → MPC 14:03
PROVIDERS: ADMIT Internal Medicine Infectious Disease; ATTEND Internal Medicine Infectious Disease
DX: R55 Syncope and collapse (principal); R79.89 Other specified abnormal findings of blood chemistry; E11.9 Type 2 diabetes mellitus without complications; I10 Essential (primary) hypertension; Z79.82 Long term (current) use of aspirin; Z79.84 Long term (current) use of oral hypoglycemic drugs
CPT/HCPCS: 36415; 70549; 70553; 71020; 80053; 80061; 83036; 83735; 83880; 84100; 84145; 84484; 85025; 93005; 93880; 96374; 96376; 99285; A9585; C8929; G0378; J1650; J1815